=== PATIENT | male | born 1965 | race Caucasian/White ===

== ENCOUNTER 2017-07-16 09:29 | Day surgery (SDC) | payer BC ==
[~2017-07-16 09:29] MED LIST: Bupivacaine 0.5% 50 ML MDV ONE; Lidocaine 1% with EPINEPHrine 1:100,000 50 ML MDV ONE; Midazolam 1 MG/ML 2 ML SDV ONE; Propofol 200 MG/20 ML SDV ONE; fentaNYL 100 MCG/2 ML SDV ONE
[2017-07-16] MEDS ORDERED: Dextrose 5%-Lactated Ringers 1,000 ML IV SCH (10:45)
[2017-07-16] MEDS ORDERED: ceFAZolin 2 GM in Premix Bag 1 BAG IV ONE (11:30)
[2017-07-16 13:40] VITALS: BP 129/86
[2017-07-16] MEDS ORDERED: Lidocaine 1% 20 ML MDV INJECT ONE (14:08)
--- NOTE | 2017-07-16 18:19 | OR ---
DATE OF PROCEDURE: 07/16/2017 PREOPERATIVE DIAGNOSIS: Periumbilical hernia. POSTOPERATIVE DIAGNOSIS: Periumbilical subcutaneous mass consistent with lipoma. No evidence of hernia. PROCEDURE PERFORMED: Excision of 2 cm subcutaneous mass. SURGEON: Srinivas Xiao MD. ANESTHESIA: IV anesthesia with monitored anesthesia care. INDICATION: This 52-year-old white male complains of periumbilical pain. It was thought he had a hernia. I could not palpate a hernia. He had a CAT scan which was consistent with a small periumbilical hernia. The defect was hard to see but there was a 2 cm mass associated with it. He is admitted for repair of any hernia found. I counseled him for surgery and he gave his informed consent to proceed. DESCRIPTION OF PROCEDURE: After adequate IV anesthesia was obtained, the patient's abdomen was prepped and draped in the usual sterile fashion. Time-out was held. Lidocaine 1% plain in a 50:50 mix with 0.5% Marcaine with epinephrine was infiltrated about the umbilicus and the periumbilical area. An incision was made through his existing infraumbilical scar. This was carried deep to a mass which was located to the right of the umbilicus. This was dissected free. It was noted to be consistent with a lipoma. There was no evidence of a hernia. We examined the area quite well. Everything under the scar tissue was intact. No fascial defects were seen. The incision was irrigated and suctioned dry. Hemostasis was obtained with electrocautery. The subcutaneous tissue was approximated with a running stitch of 2-0 Vicryl and 4-0 Vicryl, using a subcuticular stitch, was placed to approximate the skin. Dermabond was applied. The patient tolerated the procedure well, was brought from the operating room in good condition. Srinivas Xiao MD /[id number] [id number]
== END 2017-07-16 14:36 | disposition home or self-care (01) ==
LOC: JP.SDS 09:29
PROVIDERS: ATTEND Surgery
DX: K42.9 Umbilical hernia without obstruction or gangrene (principal); D17.1 Benign lipomatous neoplasm of skin and subcutaneous tissue of trunk; K21.9 Gastro-esophageal reflux disease without esophagitis; Z87.891 Personal history of nicotine dependence
CPT/HCPCS: 11402; 12031; 88302; J0690; J2250; J2704; J3010; J7042